=== PATIENT | male | born 1945 | race Caucasian/White ===

== ENCOUNTER 2021-12-21 23:27 | Inpatient (IN) | payer MEDICARE, OTHER ==
[2021-12-22 00:13] LABS: ESTIMATED GFR 42 mL/min (>60)
[2021-12-22] MEDS ORDERED: Sodium Chloride 0.9% 1,000 ML IV ONE ×2 (00:30→01:48)
[2021-12-22] MEDS: Piperacillin/Tazobactam 3.375 GM in Sodium Chloride 0.9% 50 ML IV SCH ×4 (02:14→20:18)
[2021-12-22] MEDS ORDERED: VANCOmycin 2 GM/400 ML 400 ML IV ONE (02:30)
[2021-12-22] MEDS ORDERED: Glucagon,Human Recombinant 1 MG Vial IM PRN ×2 (02:37→11:27)
[2021-12-22] MEDS ORDERED: 50% Dextrose in Water 50 ML Syringe IVPUSH PRN ×2 (02:37→11:27)
[2021-12-22] MEDS ORDERED: Enoxaparin 30 MG/0.3 ML Syringe SUBCUT SCH (02:45)
[2021-12-22] MEDS: Pantoprazole 40 MG Vial IVPUSH SCH (03:28)
[2021-12-22 06:41] LABS: ESTIMATED GFR 58 mL/min (>60)
[2021-12-22] MEDS ORDERED: Insulin Lispro 100 Unit/ML 3 ML KwikPen SUBCUT SCH (08:00)
[2021-12-22] MEDS: Sodium Chloride 0.9% 10 ML Syringe FLUSH PRN ×5 (08:58→21:02)
[2021-12-22] MEDS ORDERED: CARBOXYMETHYLCELLULOSE SODIUM EYEBOTH PRN (11:27)
[2021-12-22] MEDS ORDERED: Nitroglycerin 0.4 MG Tab.SL SL PRN (11:27)
[2021-12-22] MEDS ORDERED: Chlorthalidone 25 MG Tab PO PRN (11:27)
[2021-12-22] MEDS ORDERED: traZODone 50 MG Tab PO PRN (11:27)
[2021-12-22] MEDS ORDERED: [UNRECOGNIZED DRUG - OTHER] EYEBOTH PRN (11:27)
[2021-12-22] MEDS ORDERED: tiZANidine 4 MG Tab PO PRN (11:27)
[2021-12-22] MEDS ORDERED: Insulin Glargine,Human Rec. Analog 100 Units/ML 3 ML Pen SUBCUT ONE ×2 (11:45→12:43)
[2021-12-22] MEDS: INSULIN ASPART SUBCUT SCH ×2 (12:16→18:56)
[2021-12-22] MEDS: Metoprolol Tartrate 50 MG Tab PO SCH ×2 (12:39→20:20)
[2021-12-22] MEDS: Isosorbide Mononitrate 60 MG Tab.ER PO SCH (12:39)
[2021-12-22] MEDS: Furosemide 20 MG Tab PO SCH (12:40)
[2021-12-22] MEDS: buPROPion 150 MG Tab.ER PO SCH (12:40)
[2021-12-22] MEDS ORDERED: VANCOmycin 1.5 GM/300 ML 300 ML IV SCH (16:00)
[2021-12-22] MEDS: Gabapentin 600 MG Tab PO SCH (20:19)
[2021-12-22] MEDS: Acetaminophen 500 MG Tab PO SCH (20:21)
[2021-12-22] MEDS: Allopurinol 300 MG Tab PO SCH (20:23)
[2021-12-22] MEDS: tiZANidine 4 MG Tab PO SCH (20:24)
[2021-12-22] MEDS: Famotidine 20 MG Tab PO SCH (20:25)
[2021-12-22] MEDS: Insulin Glargine,Human Rec. Analog 100 Units/ML 3 ML Pen SUBCUT SCH (21:11)
[2021-12-23] MEDS ORDERED: VANCOmycin 1.25 GM/250 ML 1.25 GM in Premix Bag 1 BAG IV SCH (02:00)
[2021-12-23] MEDS: Piperacillin/Tazobactam 3.375 GM in Sodium Chloride 0.9% 50 ML IV SCH ×4 (02:10→20:52)
[2021-12-23] MEDS: Sodium Chloride 0.9% 10 ML Syringe FLUSH PRN ×5 (02:10→20:53)
[2021-12-23] MEDS: Pantoprazole 40 MG Vial IVPUSH SCH (03:02)
[2021-12-23 06:27] LABS: ESTIMATED GFR 58 mL/min (>60)
[2021-12-23] MEDS ORDERED: Insulin Glargine,Human Rec. Analog 100 Units/ML 3 ML Pen SUBCUT SCH (08:00)
[2021-12-23] MEDS: INSULIN ASPART SUBCUT SCH ×3 (08:26→17:25)
[2021-12-23] MEDS: Aspirin 81 MG Tab.Chew PO SCH (08:36)
[2021-12-23] MEDS: Empagliflozin 25 MG Tab PO SCH (08:37)
[2021-12-23] MEDS: Isosorbide Mononitrate 60 MG Tab.ER PO SCH (08:37)
[2021-12-23] MEDS: Metoprolol Tartrate 50 MG Tab PO SCH ×2 (08:38→21:11)
[2021-12-23] MEDS: Furosemide 20 MG Tab PO SCH (08:38)
[2021-12-23] MEDS: Famotidine 20 MG Tab PO SCH ×2 (08:39→21:13)
[2021-12-23] MEDS: Enoxaparin 40 MG/0.4 ML Syringe SUBCUT SCH (08:39)
[2021-12-23] MEDS: Acetaminophen 500 MG Tab PO SCH ×2 (08:40→21:13)
[2021-12-23] MEDS: buPROPion 150 MG Tab.ER PO SCH (08:41)
[2021-12-23] MEDS: tiZANidine 4 MG Tab PO SCH ×2 (08:41→21:15)
[2021-12-23] MEDS: Insulin Glargine,Human Rec. Analog 100 Units/ML 3 ML Pen SUBCUT SCH ×2 (08:42→21:17)
[2021-12-23] MEDS: Gabapentin 600 MG Tab PO SCH (21:13)
[2021-12-23] MEDS: Allopurinol 300 MG Tab PO SCH (21:15)
[2021-12-24] MEDS: Pantoprazole 40 MG Vial IVPUSH SCH (02:13)
[2021-12-24] MEDS: Sodium Chloride 0.9% 10 ML Syringe FLUSH PRN ×2 (02:15→02:18)
[2021-12-24] MEDS: Piperacillin/Tazobactam 3.375 GM in Sodium Chloride 0.9% 50 ML IV SCH (02:16)
[2021-12-24 07:08] LABS: ESTIMATED GFR 58 mL/min (>60)
[2021-12-24] MEDS: INSULIN ASPART SUBCUT SCH ×2 (08:09→11:56)
[2021-12-24] MEDS: Cephalexin 500 MG Cap PO SCH ×2 (09:13→12:45)
[2021-12-24] MEDS: Empagliflozin 25 MG Tab PO SCH (09:14)
[2021-12-24] MEDS: Isosorbide Mononitrate 60 MG Tab.ER PO SCH (09:14)
[2021-12-24] MEDS: Aspirin 81 MG Tab.Chew PO SCH (09:14)
[2021-12-24] MEDS: Furosemide 20 MG Tab PO SCH (09:15)
[2021-12-24] MEDS: Acetaminophen 500 MG Tab PO SCH (09:16)
[2021-12-24] MEDS: buPROPion 150 MG Tab.ER PO SCH (09:17)
[2021-12-24] MEDS: tiZANidine 4 MG Tab PO SCH (09:17)
[2021-12-24] MEDS: Metoprolol Tartrate 50 MG Tab PO SCH (09:17)
[2021-12-24] MEDS: Enoxaparin 40 MG/0.4 ML Syringe SUBCUT SCH (09:18)
[2021-12-24] MEDS: Famotidine 20 MG Tab PO SCH (09:19)
[2021-12-24] MEDS: Insulin Glargine,Human Rec. Analog 100 Units/ML 3 ML Pen SUBCUT SCH (09:21)
== END 2021-12-24 12:45 | disposition home or self-care (01) | DRG 872 ==
LOC: FB.ED 23:27 → FB.MS 12-22 02:30 → OBSVTOIN 12-22 08:01
PROVIDERS: ADMIT Student in an Organized Health Care Education/Training Program; ATTEND Family Medicine
DX: A41.9 Sepsis, unspecified organism (principal); A41.51 Sepsis due to Escherichia coli [E. coli]; N17.9 Acute kidney failure, unspecified; E66.2 Morbid (severe) obesity with alveolar hypoventilation; D72.829 Elevated white blood cell count, unspecified; N30.01 Acute cystitis with hematuria; Z66 Do not resuscitate; Z20.822 Contact with and (suspected) exposure to COVID-19; R65.20 Severe sepsis without septic shock; I25.10 Atherosclerotic heart disease of native coronary artery without angina pectoris; M10.9 Gout, unspecified; E11.9 Type 2 diabetes mellitus without complications; E78.5 Hyperlipidemia, unspecified; K21.9 Gastro-esophageal reflux disease without esophagitis; I48.0 Paroxysmal atrial fibrillation; I10 Essential (primary) hypertension; F32.A Depression, unspecified; M19.90 Unspecified osteoarthritis, unspecified site; Z86.16 Personal history of COVID-19; I25.2 Old myocardial infarction; Z95.5 Presence of coronary angioplasty implant and graft; G47.33 Obstructive sleep apnea (adult) (pediatric); Z79.4 Long term (current) use of insulin; Z68.34 Body mass index [BMI] 34.0-34.9, adult; Z99.89 Dependence on other enabling machines and devices; Z79.82 Long term (current) use of aspirin; Z79.899 Other long term (current) drug therapy; Z91.030 Bee allergy status; Z88.8 Allergy status to other drugs, medicaments and biological substances; Z87.891 Personal history of nicotine dependence; Z98.49 Cataract extraction status, unspecified eye
CPT/HCPCS: 36415; 51702; 71045; 80048; 80053; 80202; 81001; 82947; 83605; 83880; 84484; 85025; 87040; 87086; 87088; 87186; 93005; 93010; 94150; 96361; 96365; 96375; 97161-GP; 97165-GO; 97530-GO; 99223; 99232; 99238; 99284; 99285-25; A9270-GY; C9113; J1650; J1815; J1815-GY; J2543; J3370; J3490; J7030; U0002

== ENCOUNTER 2021-12-29 19:28 | Emergency (ER) | payer MEDICARE, OTHER ==
[2021-12-29] MEDS ORDERED: Meclizine 25 MG Tab PO ONE (19:29)
[2021-12-29] MEDS: Meclizine 25 MG Tab PO ONE (20:10)
[2021-12-29 20:14] LABS: ESTIMATED GFR 58 mL/min (>60)
[2021-12-29] MEDS: NS + KCl 20mEq/L 1,000 ML IV SCH (20:28)
[2021-12-29] MEDS: Sodium Chloride 0.9% 10 ML Syringe FLUSH PRN (20:36)
== END 2021-12-29 22:02 | disposition home or self-care (01) ==
LOC: FB.ED 19:28
DX: R42 Dizziness and giddiness (principal); E86.0 Dehydration; I10 Essential (primary) hypertension; I25.2 Old myocardial infarction; K21.9 Gastro-esophageal reflux disease without esophagitis; Z91.030 Bee allergy status; Z88.8 Allergy status to other drugs, medicaments and biological substances; Z79.4 Long term (current) use of insulin; Z79.899 Other long term (current) drug therapy
CPT/HCPCS: 36415; 51798; 71046; 80048; 81001; 83605; 85027; 86140; 96365; 99282; 99285-25; A9270-GY; J3480; J3490